=== PATIENT | female | born 1955 | race Native Hawaiian/Other Pacific Islander ===

== ENCOUNTER 2017-06-09 14:18 | Emergency (ER) | payer OTHER ==
[~2017-06-09] VITALS: Ht 157.5 cm; Wt 62.6 kg
[2017-06-09 14:30] VITALS: BP 138/82; TEMP 98.7
[2017-06-09 15:46] LABS: PLATELET COUNT 348 K/uL (152-353)
[2017-06-09 15:57] LABS: POTASSIUM 3.9 mmol/L (3.6-5.2); SODIUM 138 mmol/L (136-145)
== END 2017-06-09 15:38 | disposition home or self-care (01) ==
LOC: ED 14:18
PROVIDERS: Emergency Medicine
DX: S60.352A Superficial foreign body of left thumb, initial encounter (principal); W45.8XXA Other foreign body or object entering through skin, initial encounter; W46.0XXA Contact with hypodermic needle, initial encounter
CPT/HCPCS: 80053; 80307; 80320; 85027; 86703; 86706; 86803; 99282; G0432; G0479

== ENCOUNTER 2020-04-08 12:57 | Outpatient (CLI) | payer OTHER | END 2020-04-08 23:02 | disposition home or self-care (01) | LOC: US 12:57 | DX: R59.0 Localized enlarged lymph nodes (principal) ==

== ENCOUNTER 2022-06-10 09:23 | Outpatient (CLI) | payer OTHER | END 2022-06-10 19:02 | disposition home or self-care (01) | LOC: MAMMO 09:23 | PROVIDERS: ATTEND Obstetrics & Gynecology | DX: Z12.31 Encounter for screening mammogram for malignant neoplasm of breast (principal) ==

== ENCOUNTER 2022-11-17 10:13 | Outpatient (CLI) | payer OTHER | END 2022-11-17 20:50 | LOC: RAD 10:13 | PROVIDERS: ATTEND Internal Medicine | DX: N95.8 Other specified menopausal and perimenopausal disorders (principal); M19.90 Unspecified osteoarthritis, unspecified site ==